=== PATIENT | female | born 1940 | race Caucasian/White ===

== ENCOUNTER 2021-04-19 07:12 | Emergency (ER) | payer MEDICARE, MEDICAID, SELFPAY ==
[2021-04-19 07:13] VITALS: BP 181/71; PULSE 57; RESP 19; TEMP 36.6; O2SAT 99
--- NOTE | 2021-04-19 07:24 | PC.NURSE ---
MD mahmood at bedside.
--- NOTE | 2021-04-19 07:33 | PC.NURSE ---
Pt BELA Drake contacted at this time, informed of pt status, states she will not come to get pt for dc.
--- NOTE | 2021-04-19 07:33 | ED.GENADULT ---
HPI - General Adult General Chief complaint: Recheck/Abnormal Lab/Rx Stated complaint: ELEVATED BP Time Seen by Provider: 04/19/21 07:21 Source: patient, EMS and RN notes reviewed Limitations: no limitations and clinical condition History of Present Illness HPI narrative: Patient is 80 years old white female brought to the emergency room by ambulance from [facility] because of elevated blood pressure. On arrival to the emergency room the blood pressure was 181/71. Patient did not take her blood pressure medications this morning prior to arrival. Patient on atenolol 50 mg, lisinopril/hydrochlorothiazide 20 mg / 12.5 mg every morning. Patient is asymptomatic, asking me why I am here and would like to leave as soon as possible. Patient denies any chest pain, shortness of breath, back pain, headache, nausea, vomiting, fever, chills. Related Data Home Medications Medication Instructions Recorded Confirmed aspirin 81 mg PO DAILY 04/19/21 atenolol 50 mg PO DAILY 04/19/21 donepezil 10 mg PO HS 04/19/21 ergocalciferol (vitamin D2) 1,250 mcg PO WEEKLY 04/19/21 furosemide 20 mg PO DAILY 04/19/21 lisinopril-hydrochlorothiazide 1 tablet PO DAILY 04/19/21 memantine 10 mg PO BID 04/19/21 methimazole 5 mg PO DAILY 04/19/21 potassium chloride 10 meq PO DAILY 04/19/21 simvastatin 20 mg PO HS 04/19/21 vit C,N-Ry-gfjdi-lutein-zeaxan 1 tablet PO BID 04/19/21 [PreserVision AREDS-2] Allergies Allergy/AdvReac Type Severity Reaction Status Date / Time cefuroxime Allergy Mild Unknown Verified 04/19/21 07:21 simvastatin Allergy Unknown Unknown Verified 04/19/21 07:21 No Known Allergies Allergy Verified 04/19/21 07:21 Review of Systems Review of Systems: ROS unobtainable: Yes unobtainable due to medical condition and unobtainable due to mental status PMFSH Family History Family History Mother Carcinoma of colon Father Family history of coronary artery disease Other Family history of congestive heart failure Family history of malignant neoplasm Social History Social History Smoking status: Never smoker Alcohol intake: current Exam Narrative: Exam Narrative: General appearance: Well-developed, well-nourished, very pleasant, smiling, looks very comfortable Skin: Normal color Head: Normocephalic, nontraumatic Eyes: Clear conjunctiva ENT: Oropharynx normal, ears normal, nose normal Neck: Supple, nontender Chest and respiratory: Airway patent, no respiratory distress, no accessory muscle use Heart: Regular rate/rhythm Abdomen: Soft, nontender, no organomegaly, quiet bowel sounds Vascular: Normal peripheral pulses, normal capillary refill. Musculoskeletal: Normal range of motion, nontender back Neurologic: Alert and oriented to her name only Course Course Emergency Course: Stable Vital Signs Vital signs: Vital Signs Temperature 36.6 C 04/19/21 07:13 Pulse Rate 57 L 04/19/21 07:13 Respiratory Rate 19 04/19/21 07:13 Blood Pressure 181/71 H 04/19/21 07:13 Pulse Oximetry 99 04/19/21 07:13 Temperature 36.6 C 04/19/21 07:13 Pulse Rate 57 L 04/19/21 07:13 Respiratory Rate 19 04/19/21 07:13 Blood Pressure 181/71 H 04/19/21 07:13 Pulse Oximetry 99 04/19/21 07:13 Medical Decision Making MDM Narrative Medical decision making narrative: Patient presents with elevated blood pressure, did not receive her regular antiblood pressure medication prior to arrival. The plan to give her her morning dose of atenolol and lisinopril then monitor blood pressure for the next 30 minutes then discharge Differential Diagn
[2021-04-19] MEDS: hydroCHLOROthiazide 12.5 MG CAPSULE PO (07:51)
[2021-04-19] MEDS: lisinopriL 20 MG TABLET PO (07:51)
[2021-04-19 07:52] VITALS: PULSE 68
[2021-04-19] MEDS: atenoloL 50 MG TABLET PO (07:52)
[2021-04-19 07:54] VITALS: BP 152/71; PULSE 78; RESP 15; O2SAT 99
--- NOTE | 2021-04-19 07:54 | PC.NURSE ---
PT AGITATED, STATES SHE WANTS TO LEAVE, REDIRECTED AND INFORMED OF PLAN OF CARE, PT STILL ASKING WHEN SHE CAN LEAVE.
--- NOTE | 2021-04-19 07:57 | PC.NURSE ---
Per EDP Мария pt cleared for dc.
--- NOTE | 2021-04-19 08:00 | PC.NURSE ---
Dietary contacted for meal tray at this time.
--- NOTE | 2021-04-19 08:08 | PC.NURSE ---
Report called to BRETT mayorga at [facility] at this time.
--- NOTE | 2021-04-19 08:22 | PC.NURSE ---
[facility][1] contacted at this time to see about bus transfer due to ems eta being 2-3 hours. Per eliezer at [facility][1] she is sending the bus over at this time.
[2021-04-19 08:37] VITALS: BP 150/75; PULSE 68; RESP 16; O2SAT 97
== END 2021-04-19 08:38 ==
LOC: ANHED 08:28
PROVIDERS: Emergency Provider Emergency Medicine; PCP Family Medicine
DX: I10 Essential (primary) hypertension (principal); Z79.82 Long term (current) use of aspirin
CPT/HCPCS: 99283; A9270

== ENCOUNTER 2022-01-08 08:56 | Emergency (ER) | payer OTHER, MEDICARE, SELFPAY ==
[2022-01-08] VITALS (21 sets, daily range): BP systolic 75–134; BP diastolic 41–55; PULSE 49–72; RESP 12–23; TEMP 36.4; O2SAT 95–99
--- NOTE | 2022-01-08 09:06 | ECG_ITS ---
Measurements Intervals [place] Rate: 51 P: 19 FL: 171 QRS: -11 QRSD: 88 T: 162 QT: 443 QTc: 410 Interpretive Statements SINUS BRADYCARDIA LEFT VENTRICULAR HYPERTROPHY AND ST-T CHANGE [VOLTAGE CRITERIA PLUS ST/T ABNORMALITY] NO PREVIOUS ECG AVAILABLE FOR COMPARISON Electronically Signed On 01-08-2022 18:32:54 CDT by Desi Rios M.D.
[2022-01-08 09:22] LABS: Basophils Absolute Auto 0.1 K/mm3 (0.0-0.1); Basophils Percent Auto 0.9 % (0.2-1.2); Eosinophils Absolute Auto 0.6 K/mm3 (0-0.3); Hematocrit 36.4 % (37.0-47.0); Hemoglobin 11.2 g/dL (12.0-15.0); Immature Granulocyte Absolute 0.06 K/mm3 (0.00-0.031); Immature Granulocyte Percent A 1.1 % (0-0.5); Lymphocytes Percent Auto 24.5 % (18.3-44.2); Mean Corpuscular HGB Conc 30.8 g/dl (32-36); Mean Corpuscular Hemoglobin 31.3 pg (26-34); Mean Corpuscular Volume 101.7 fl (80-100); Mean Platelet Volume 11.2 fl (7.4-10.4); Monocytes Absolute Auto 0.4 K/mm3 (0.1-0.6); Monocytes Percent Auto 7.2 % (2.6-8.5); Neutrophils Absolute Auto 3.2 K/mm3 (1.3-6.7); Neutrophils Percent Auto 56.3 % (45.5-73.1); Platelet Count Result 151 k/mm3 (150-375); Red Blood Count 3.58 M/mm3 (4.2-5.4); Red Cell Distribution Width 17.4 % (11.5-14.5); White Blood Count 5.7 K/mm3 (4.5-10.0)
[2022-01-08] MEDS: SODIUM CHLORIDE 0.9% IV 1,000 ML 999 ML IV CONT (09:24)
[2022-01-08 09:33] LABS: Alanine Aminotransferase 64 U/L (4-35); Albumin Level 3.6 g/dL (3.5-5.1); Alkaline Phosphatase 106 U/L (38-126); Anion Gap 7 mmol/L (8-16); Aspartate Amino Transferase 84 U/L (14-36); Bilirubin,Total 0.4 mg/dL (0.2-1.3); Blood Urea Nitrogen 38 mg/dL (7-17); Calcium 9.6 mg/dL (8.4-10.2); Carbon Dioxide 30 mmol/L (22-30); Chloride 105 mmol/L (98-107); Estimated CRCL calculation 36 ml/min; Estimated Glomerular Filt Rate 48; Glucose 109 mg/dL (65-110); Potassium 3.7 mmol/L (3.4-5.0); Sodium 142 mmol/L (137-145)
--- NOTE | 2022-01-08 10:23 | ED.DIZZY ---
HPI - Dizziness General Chief Complaint: Syncope Stated Complaint: syncopal episode Time Seen by Provider: 01/08/22 09:43 Source: patient, EMS and other ([facility] staff) Mode of arrival: EMS Limitations: dementia History of Present Illness HPI Narrative: Pt is a 81 y/o female, presents to ED via EMS from [facility] with C/O brief episode of unresponsiveness while seated at the breakfast table this morning. She was reported by staff to have slumped forward and her color was poor . This episode lasted seconds before self resolving. She arrives alert, oriented to self and place, per her baseline. She has no complaints. MD elicited complaint: other (refer to HPI) Onset (ago): hour(s) Severity: mild History of similar symptoms: No Exacerbating factors: nothing Relieving factors: nothing Associated symptoms: denies other symptoms Related Data Home Medications Medication Instructions Recorded Confirmed aspirin 81 mg PO DAILY 04/19/21 atenolol 50 mg PO DAILY 04/19/21 donepezil 10 mg PO HS 04/19/21 ergocalciferol (vitamin D2) 1,250 mcg PO WEEKLY 04/19/21 furosemide 20 mg PO DAILY 04/19/21 lisinopril-hydrochlorothiazide 1 tablet PO DAILY 04/19/21 memantine 10 mg PO BID 04/19/21 methimazole 5 mg PO DAILY 04/19/21 potassium chloride 10 meq PO DAILY 04/19/21 simvastatin 20 mg PO HS 04/19/21 vit C,M-Vo-ombss-lutein-zeaxan 1 tablet PO BID 04/19/21 [PreserVision AREDS-2] Allergies Allergy/AdvReac Type Severity Reaction Status Date / Time cefuroxime Allergy Mild Unknown Verified 04/19/21 07:21 simvastatin Allergy Unknown Unknown Verified 04/19/21 07:21 Review of Systems Constitutional: Constitutional: Reports no additional constitutional complaints Cardiovascular: Cardiovascular: Reports as per [facility] Family History Family History Mother Carcinoma of colon Father Family history of coronary artery disease Other Family history of congestive heart failure Family history of malignant neoplasm Social History Social History Smoking status: Never smoker Alcohol intake: current Gender identity (if verbalized by the patient): Female Exam Const: General: cooperative, healthy appearing, comfortable, no acute distress, well developed, alert and awake Orientation/consciousness: oriented to person and oriented to place Other: dementia HENMT: Head: normal to inspection and normocephalic Ears: hearing grossly normal bilaterally General nose exam: Normal external nose present Face and sinus: normal facial exam, sinuses nontender and face symmetric Mouth: Yes Normal oral and palatal mucosa present Eyes: General: appearance normal, both eyes and all related structures Visual Herman: normal visual herman by confrontation Alignment and Position: alignment normal Periorbital: periorbital findings normal Eyelids: eyelids normal Conjunctivae: conjunctivae normal Sclera: sclerae normal Pupils: Equal, round and reactive pupils present EOM: EOMs intact bilaterally Neck: Neck: normal visual inspection and no meningeal signs Thyroid: thyroid normal Carotids: normal carotid upstroke Chest: Chest palpation & inspection: normal inspection of the chest Resp: Effort & Inspection: normal respiratory effort and respiratory distress Auscultation: clear to auscultation bilaterally Percussion: percussion normal Cardio: Rhythm: regular rhythm Heart sounds: S1 normal heart sound present and S2 normal heart sound present Peripheral pulses: Peripheral pulses 2+ throughout GI: Inspection: normal to inspection GI Palp: Yes abdominal tenderness Percussion: Yes normal to percussion Auscultation: normal bowel sounds Rectal Exam: deferred Back/Spine/Pelvis: Back: no CVA tenderness Course Course Emergency Course: Pt is very pleasant. She is conversant, in NAD. She has no complaints at this time
[2022-01-08 11:22] LABS: Troponin I 0.034 ng/mL (0.000-0.034)
[2022-01-08 12:52] LABS: Add Urine Microscopic? YES; Appearance Urine Clear (Clear); Bilirubin Urine Negative (Negative); Blood Urine Negative (Negative); Color Urine Yellow (Yellow); Glucose Urine UA Negative (Negative); Ketones Urine Negative (Negative); Leukocyte Esterase Ur Negative LEU/UL (Negative); Nitrate Urine Negative (Negative); Protein Urine Negative (Negative); RBC Urine 0-2 /hpf (0-2); Specific Grav Ur 1.011 (1.001-1.035); Squamous Epithelial Cell Urine Rare /hpf (Few); Urobilinogen Urine Negative mg/dL (<2.0); WBC Urine 0-3 /hpf
--- NOTE | 2022-01-08 15:30 | PC.NURSE ---
[facility] will be here around 1615 for transport back to [facility]
--- NOTE | 2022-01-08 15:47 | PC.NURSE ---
update given to Noelle CRAMER.
--- NOTE | 2022-01-08 17:51 | PC.NURSE ---
called [facility] update 1510 eta now 1615, update 1703, eta now 1730, update 1749, eta now 1830.
--- NOTE | 2022-01-08 18:14 | PC.NURSE ---
cancelled samia 1811. called [facility] to do transport eta about 30 min.
== END 2022-01-08 19:03 ==
PROVIDERS: Emergency Medicine; Emergency Provider Nurse Practitioner Family; PCP Family Medicine
DX: I95.1 Orthostatic hypotension (principal); R00.1 Bradycardia, unspecified; I51.7 Cardiomegaly
CPT/HCPCS: 36415; 51701; 80053; 81001; 84484; 85025; 93005; 96360; 96361; 99284; J7030